=== PATIENT | male | born 1995 | race Two or more races ===

== ENCOUNTER 2022-03-12 19:48 | Emergency (ER) | payer OTHER ==
[~2022-03-12] VITALS: Ht 170.2 cm; Wt 79.4 kg
[2022-03-12 21:44] VITALS: BP 133/88
== END 2022-03-13 01:45 | disposition left against medical advice (07) ==
LOC: ER 19:48
DX: S01.01XA Laceration without foreign body of scalp, initial encounter (principal); Z53.21 Procedure and treatment not carried out due to patient leaving prior to being seen by health care provider; X58.XXXA Exposure to other specified factors, initial encounter; Y93.89 Activity, other specified; Y92.89 Other specified places as the place of occurrence of the external cause; Y99.8 Other external cause status